=== PATIENT | male | born 1955 | race Caucasian/White ===

== ENCOUNTER → 2016-08-09 | Outpatient (CLI) | payer BC ==
--- NOTE | 2016-08-09 16:51 | US ---
EXAMINATION TYPE: US venous doppler duplex LE LT DATE OF EXAM: 08/09/2016 4:31 PM COMPARISON: NONE CLINICAL HISTORY: left total knee 07/11/2016, pain in calf since surgery SIDE PERFORMED: left VESSELS IMAGED: External Iliac Vein (EIV) Common Femoral Vein Deep Femoral Vein Greater Saphenous Vein * Femoral Vein Popliteal Vein Small Saphenous Vein * Proximal Calf Veins (* superficial vessels) Left Leg: wnl TECHNOLOGIST IMPRESSION: calf pain area slight edema, no acute DVT seen IMPRESSION: 1. Normal left lower extremity deep venous ultrasound
== END | disposition home or self-care (01) ==
LOC: RADUSWWP 15:46
PROVIDERS: ATTEND Orthopaedic Surgery
DX: Z47.1 Aftercare following joint replacement surgery (principal); M79.662 Pain in left lower leg; Z96.652 Presence of left artificial knee joint

== ENCOUNTER → 2018-03-20 | Outpatient (CLI) | payer BC ==
[2018-03-20 14:25] LABS: Basophils % (A) 0 %; Eosinophils # (A) 0.2 k/uL (0-0.7); Eosinophils % (A) 2 %; HCT 44.9 % (39.0-53.0); HGB 14.9 gm/dL (13.0-17.5); Lymphocytes # (A) 0.8 k/uL (1.0-4.8); Lymphocytes % (A) 13 %; MCH 29.8 pg (25.0-35.0); MCHC 33.1 g/dL (31.0-37.0); MCV 89.8 fL (80.0-100.0); Mean Platelet Volume 6.5; Monocytes # (A) 0.3 k/uL (0-1.0); Monocytes % (A) 5 %; Neutrophils % (A) 79 %; Platelet Count 243 k/uL (150-450); RDW 13.4 % (11.5-15.5); WBC 6.4 k/uL (3.8-10.6)
[2018-03-20 15:36] LABS: Erythrocyte Sedimentation Rate 4 mm/hr (0-15)
[2018-03-21 14:18] LABS: Albumin 3.91 g/dL (3.80-4.90); Gamma Globulin 0.74 g/dL (0.70-1.50); Protein, Total 6.2 g/dL (6.2-8.2)
== END | disposition home or self-care (01) ==
LOC: LABWHC1 13:41
PROVIDERS: ATTEND Family Medicine
DX: I10 Essential (primary) hypertension (principal); B02.9 Zoster without complications; Z79.899 Other long term (current) drug therapy
CPT/HCPCS: 36415; 84165; 85025; 85652; 86140; 86334

== ENCOUNTER → 2020-08-23 | Outpatient (CLI) | payer BC ==
--- NOTE | 2020-08-23 17:09 | XR ---
EXAMINATION TYPE: XR chest 2V DATE OF EXAM: 08/23/2020 COMPARISON: NONE HISTORY: Shortness of breath, R06.2 TECHNIQUE: Frontal and lateral views of the chest are obtained. FINDINGS: There is minimal patchy basilar density, no pleural effusion or pneumothorax seen. The ca rdiac silhouette size is within normal limits. The osseous structures are intact, there is thoracic spondylosis. IMPRESSION: There may be subsegmental basilar atelectatic changes or scarring, difficult to exclude pneumonia
--- NOTE | 2020-08-24 12:04 | ECHOF ---
Referral Reason:R06.02 Shortness of breath MEASUREMENTS -------- HEIGHT: 165.1 cm WEIGHT: 104.3 kg BP: IVSd: 0.9 cm (0.6 - 1.1) LVIDd: 4.6 cm (3.9 - 5.3) LVPWd: 0.9 cm (0.6 - 1.1) IVSs: 1.5 cm LVIDs: 1.2 cm LVPWs: 1.3 cm LAESV Index (A-L): 18.07 ml/m Ao Diam: 2.5 cm (2.0 - 3.7) AV Cusp: 1.9 cm (1.5 - 2.6) LA Diam: 3.7 cm (2.7 - 3.8) MV EXCURSION: 24.505 mm (> 18.000) MV EF SLOPE: 160 mm/s (70 - 150) EPSS: 1.9 cm MV E Claudio: 1.02 m/s MV DecT: 225 ms MV A Claudio: 0.98 m/s MV E/A Ratio: 1.04 RAP: 5.00 mmHg RVSP: 16.49 mmHg FINDINGS -------- Sinus rhythm. This was a technically adequate study. The left ventricular size is normal. Left ventricular wall thickness is normal. Overall left vent ricular systolic function is normal with, an EF between 55 - 60 %. The diastolic filling pattern is normal for the age of the patient 14.05. The right ventricle is normal in size. Normal LA size by volume 22+/-6 ml/m2. The right atrial size is normal. The aortic valve is trileaflet, and appears structurally normal. No aortic stenosis or regurgitation. The mitral valve is normal. Mild mitral regurgitation is present. The tricuspid valve appears structurally normal. Mild tricuspid regurgitation present. Right vent ricular systolic pressure is normal at < 35 mmHg. The pulmonic valve was not well visualized. There is no pulmonic regurgitation present. The aortic root size is normal. Normal inferior vena cava with normal inspiratory collapse consistent with estimated right atrial pre ssure of 5 mmHg. There is no pericardial effusion. CONCLUSIONS -------- 1. Left ventricular wall thickness is normal. 2. Overall left ventricular systolic function is normal with, an EF between 55 - 60 %. 3. Normal LA size by volume 22+/-6 ml/m2. 4. The aortic valve is trileaflet, and appears structurally normal. No aortic stenosis or regurgitati on. 5. Mild mitral regurgitation is present. 6. Mild tricuspid regurgitation present. 7. There is no pericardial effusion. INSPECTOR [employer]ATCH [employer]S: Breana Medeiros RDCS
== END | disposition home or self-care (01) ==
LOC: RADECHMAIN 13:03
PROVIDERS: ATTEND Family Medicine
DX: R06.02 Shortness of breath (principal); I08.1 Rheumatic disorders of both mitral and tricuspid valves
CPT/HCPCS: 71046; 93005; 93306

== ENCOUNTER 2021-10-03 23:43 | Emergency (ER) | payer BC ==
[2021-10-03 23:49] VITALS: RESP 16; TEMP 98.9
[2021-10-03] MEDS ORDERED: ONDANSETRON 4 MG/2 ML VIAL IVP STA (23:56)
[2021-10-03] MEDS ORDERED: SODIUM CHLORIDE 0.9% 1,000 ML IV STA (23:56)
--- NOTE | 2021-10-03 23:59 | ED ---
Nausea/Vomiting/Diarrhea HPI - General Chief complaint: Nausea/Vomiting/Diarrhea Stated complaint: Nausea, vomiting Time Seen by Provider: 10/03/21 23:50 Source: patient, EMS, RN notes reviewed Mode of arrival: EMS Limitations: no limitations - History of Present Illness Initial comments: This is a pleasant 66-year-old male presents complaining of nausea, vomiting, diarrhea, generalized weakness since Sunday. Patient states he started getting lightheaded at home and actually almost passed out today. Patient's has similar symptoms. He is denying any pain. Patient denies any fever. No respiratory symptoms. Up-to-date on immunizations to include COVID-19/booster. No headache, no fever or chills, no changes in vision or hearing, no sore throat or difficulty with speech, no neck pain, no chest pain or shortness of breath, no abdominal pain, no changes in urination or bowel movements, no numbness or tingling, no extremity pain, no skin rashes or lesions. MD complaint: nausea, vomiting, diarrhea - Related Data Home Medications Medication Instructions Recorded Confirmed Aspirin [Adult Low Dose Aspirin EC] 81 mg PO DAILY 07/06/16 07/11/16 Multivitamins, Thera [Multivitamin] 1 tab PO DAILY 07/06/16 07/11/16 Naproxen Sodium [Aleve] 220 - 440 mg PO Q6H PRN 07/06/16 07/11/16 Valsartan [Diovan] 80 mg PO HS 07/06/16 07/11/16 amLODIPine/ATORVASTATIN [Caduet 5 1 tab PO HS 07/06/16 07/11/16 mg-80 mg Tablet] valACYclovir [Valtrex] 500 mg PO DAILY 07/06/16 07/11/16 Previous Rx's Medication Instructions Recorded Aspirin 325 mg PO BID #60 tab 07/12/16 HYDROcodone/APAP 7.5-325MG [[place] 1 - 2 each PO Q6HR PRN #90 tab 07/12/16 7.5] Sennosides-Docusate Sodium 2 tab PO DAILY #60 tablet 07/12/16 [Senokot-S] Ondansetron [Zofran ODT] 4 mg PO Q8HR #20 tab 10/04/21 Allergies Allergy/AdvReac Type Severity Reaction Status Date / Time No Known Allergies Allergy Verified 10/03/21 23:45 Review of Systems ROS Statement: Those systems with pertinent positive or pertinent negative responses have been documented in the HPI. ROS Other: All systems not noted in ROS Statement are negative. Past Medical History Past Medical History: Hyperlipidemia, Hypertension, Osteoarthritis (OA), Skin Disorder Additional Past Medical History / Comment(s): SHINGLES ON THE BACK OF HIS NECK- Healed History of Any Multi-Drug Resistant Organisms: None Reported Past Surgical History: Appendectomy, Joint Replacement, Orthopedic Surgery Additional Past Surgical History / Comment(s): RIGHT KNEE X 2 & LEFT KNEE ARTHROSCOPY. BILATERAL CARPAL TUNNEL. RIGHT & LEFT CYSTS OFF ELBOWS. . UNICOMPARTMENTAL RIGHT KNEE REPLACED. SINUS Past Anesthesia/Blood Transfusion Reactions: No Reported Reaction Past Psychological History: No Psychological Hx Reported Smoking Status: Never smoker Past Alcohol Use History: None Reported Past Drug Use History: None Reported - Past Family History Mother Family Medical History: Congestive Heart Failure (CHF), Coronary Artery Disease (CAD), Deep Vein Thrombosis (DVT), Myocardial Infarction (NM), Pulmonary Embolus Additional Family Medical History / Comment(s): GREEN FILTER INSERTED. Father Family Medical History: Coronary Artery Disease (CAD), Myocardial Infarction (NM) General Exam Limitations: no limitations General appearance: alert, in no apparent distress Head exam: Present: atraumatic, normocephalic, normal inspection Eye exam: Present: normal appearance, PERRL, EOMI. Absent: scleral icterus, conjunctival injection, periorbital swelling ENT exam: Present: normal exam, mucous membranes moist Neck exam: Present: normal inspection. Absent: tenderness, meningismus, lymphadenopathy Respiratory exam: Present: normal lung sounds bilaterally. Absent: respiratory distress, wheezes, rales, rhonchi, stridor Cardiovascular Exam: Present: normal rhythm, tachycardia, normal heart sounds. Absent: systolic murmur, diastolic murmur, rubs, gallop, clicks GI/Abdominal exam: Present: soft, normal bowel sounds. Absent: distended, tenderness, guarding, rebound, rigid Extremities exam: Present: normal inspection, full ROM, normal capillary refill. Absent: tenderness, pedal edema, joint swelling, calf tenderness Back exam: Present: normal inspection Neurological exam: Present: alert, oriented X3, CN II-XII intact Psychiatric exam: Present: normal affect, normal mood Skin exam: Present: warm, dry, intact, normal color. 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90) m/uL Hgb 15.4 (13.0-17.5) gm/dL Hct 45.3 (39.0-53.0) % MCV 92.5 (80.0-100.0) fL MCH 31.4 (25.0-35.0) pg MCHC 33.9 (31.0-37.0) g/dL RDW 13.0 (11.5-15.5) % Plt Count 225 (150-450) k/uL MPV 6.9 Neutrophils % 90 % Lymphocytes % 3 % Monocytes % 5 % Eosinophils % 0 % Basophils % 1 % Neutrophils # 8.5 H (1.3-7.7) k/uL Lymphocytes # 0.3 L (1.0-4.8) k/uL Monocytes # 0.4 (0-1.0) k/uL Eosinophils # 0.0 (0-0.7) k/uL Basophils # 0.1 (0-0.2) k/uL Sodium 135 L (137-145) mmol/L Potassium 4.0 (3.5-5.1) mmol/L Chloride 104 (98-107) mmol/L Carbon Dioxide 23 (22-30) mmol/L Anion Gap 8 mmol/L BUN 32 H (9-20) mg/dL Creatinine 1.11 (0.66-1.25) mg/dL Est GFR (CKD-EPI)AfAm 80 (>60 ml/min/1.73 sqM) Est GFR (CKD-EPI)NonAf 69 (>60 ml/min/1.73 sqM) Glucose 144 H (74-99) mg/dL Plasma Lactic Acid Kel 1.3 (0.7-2.0) mmol/L Calcium 8.3 L (8.4-10.2) mg/dL Magnesium 2.0 (1.6-2.3) mg/dL Total Bilirubin 0.7 (0.2-1.3) mg/dL AST 29 (17-59) U/L ALT 26 (4-49) U/L Alkaline Phosphatase 66 (38-126) U/L Troponin I (0.000-0.034) ng/mL Total Protein 6.1 L (6.3-8.2) g/dL Albumin 3.7 (3.5-5.0) g/dL Lipase 20 L (23-300) U/L 10/03/21 Range/Units 23:59 WBC (3.8-10.6) k/uL RBC (4.30-5.90) m/uL Hgb (13.0-17.5) gm/dL Hct (39.0-53.0) % MCV (80.0-100.0) fL MCH (25.0-35.0) pg MCHC (31.0-37.0) g/dL RDW (11.5-15.5) % Plt Count (150-450) k/uL MPV Neutrophils % % Lymphocytes % % Monocytes % % Eosinophils % % Basophils % % Neutrophils # (1.3-7.7) k/uL Lymphocytes # (1.0-4.8) k/uL Monocytes # (0-1.0) k/uL Eosinophils # (0-0.7) k/uL Basophils # (0-0.2) k/uL Sodium (137-145) mmol/L Potassium (3.5-5.1) mmol/L Chloride (98-107) mmol/L Carbon Dioxide (22-30) mmol/L Anion Gap mmol/L BUN (9-20) mg/dL Creatinine (0.66-1.25) mg/dL Est GFR (CKD-EPI)AfAm (>60 ml/min/1.73 sqM) Est GFR (CKD-EPI)NonAf (>60 ml/min/1.73 sqM) Glucose (74-99) mg/dL Plasma Lactic Acid Kel (0.7-2.0) mmol/L Calcium (8.4-10.2) mg/dL Magnesium (1.6-2.3) mg/dL Total Bilirubin (0.2-1.3) mg/dL AST (17-59) U/L ALT (4-49) U/L Alkaline Phosphatase (38-126) U/L Troponin I <0.012 (0.000-0.034) ng/mL Total Protein (6.3-8.2) g/dL Albumin (3.5-5.0) g/dL Lipase (23-300) U/L Disposition Clinical Impression: Dehydration, Vomiting and diarrhea Disposition: HOME SELF-CARE Condition: Stable Instructions (If sedation given, give patient instructions): Acute Diarrhea (ED), Acute Nausea and Vomiting (ED) Additional Instructions: Follow-up with your regular physician as directed. Return to the ER immediately if any symptoms worsen, new symptoms arise, or any other problems develop. Is patient prescribed a controlled substance at d/c from ED?: No Referrals: James Shaver MD [Primary Care Provider] - 1-2 days Time of Disposition: 01:46
[2021-10-04 00:35] LABS: Basophils # (A) 0.1 k/uL (0-0.2); Basophils % (A) 1 %; Eosinophils % (A) 0 %; HCT 45.3 % (39.0-53.0); HGB 15.4 gm/dL (13.0-17.5); Lymphocytes # (A) 0.3 k/uL (1.0-4.8); Lymphocytes % (A) 3 %; MCH 31.4 pg (25.0-35.0); MCHC 33.9 g/dL (31.0-37.0); MCV 92.5 fL (80.0-100.0); Mean Platelet Volume 6.9; Monocytes # (A) 0.4 k/uL (0-1.0); Monocytes % (A) 5 %; Neutrophils # (A) 8.5 k/uL (1.3-7.7); Neutrophils % (A) 90 %; Platelet Count 225 k/uL (150-450); WBC 9.4 k/uL (3.8-10.6)
[2021-10-04 00:55] LABS: Albumin 3.7 g/dL (3.5-5.0); Calcium 8.3 mg/dL (8.4-10.2); Total Bilirubin 0.7 mg/dL (0.2-1.3); Total Protein 6.1 g/dL (6.3-8.2)
--- NOTE | 2021-10-04 00:55 | XR ---
EXAMINATION TYPE: XR abdomen acute w cxr DATE OF EXAM: 10/04/2021 COMPARISON: Chest x-ray 08/23/2020 HISTORY: Nausea and vomiting TECHNIQUE: 4 views FINDINGS: There is no sign of intestinal obstruction or pneumoperitoneum. Fecal pattern is normal. Th ere is no sign of a mass. There is some mild linear density at the lung bases. There is no heart failure. There are no hilar ma sses. Heart size is normal. IMPRESSION: Nonacute abdomen. There is some pleural reaction and atelectasis at the lung bases not si gnificantly different than old exam. No heart failure.
[2021-10-04 01:47] LABS: Appearance,Urine Clear (Clear); Bilirubin,Urine Negative (Negative); Blood,Urine Negative (Negative); Color,Urine Yellow; Glucose,Urine (UA) Negative (Negative); Ketones,Urine Negative (Negative); Leukocyte Esterase,Urine Negative (Negative); Nitrite,Urine Negative (Negative); Protein,Urine Trace (Negative); Urobilinogen,Urine <2.0 mg/dL (<2.0)
[2021-10-04 02:09] VITALS: BP 117/75; PULSE 97
== END 2021-10-04 02:08 | disposition home or self-care (01) ==
LOC: EC 23:43
DX: E86.0 Dehydration (principal); R11.2 Nausea with vomiting, unspecified; R19.7 Diarrhea, unspecified; I10 Essential (primary) hypertension; E78.5 Hyperlipidemia, unspecified; M19.90 Unspecified osteoarthritis, unspecified site; Z79.82 Long term (current) use of aspirin; Z79.899 Other long term (current) drug therapy
CPT/HCPCS: 36415; 74022; 80053; 81003; 83605; 83690; 83735; 84484; 85025; 93005; 96360; 99285

== ENCOUNTER → 2022-06-06 | Outpatient (CLI) | payer BC ==
--- NOTE | 2022-06-06 14:37 | XR ---
EXAMINATION TYPE: XR chest special 4+ views DATE OF EXAM: 06/06/2022 COMPARISON: 10/05/2019 TECHNIQUE: PA and lateral and bilateral oblique views submitted. HISTORY: Cough FINDINGS: The lungs are clear and there is no pneumothorax, pleural effusion, or focal pneumonia. Hypertrophi c and degenerative changes spine. There are subsegmental changes at the lung bases most likely atelec tasis. Suggestion of pleural-based calcification associated with asbestos related disease. Arthropathy of the shoulders. Hyperinflation suggests COPD. Pleural-based thickening and chronic rib organs are seen correlate for history of prior trauma. IMPRESSION: 1. No acute process. Correlate for COPD. 2. Correlate for asbestos related disease. 3 pleural thickening along the left chest likely secondary to prior trauma and remote multiple rib fr actures with chronic pleural reaction.
== END | disposition home or self-care (01) ==
LOC: RADXRMAIN 13:49
PROVIDERS: ATTEND Otolaryngology
DX: J44.9 Chronic obstructive pulmonary disease, unspecified (principal)
CPT/HCPCS: 71048

== ENCOUNTER → 2022-07-25 | Outpatient (CLI) | payer BC ==
[2022-07-25 08:47] LABS: African American GFR (CKD) >90 (>60 ml/min/1.73 sqM); Blood Urea Nitrogen 22 mg/dL (9-20); Non-African American GFR(CKD) 85 (>60 ml/min/1.73 sqM)
--- NOTE | 2022-07-25 09:35 | CT ---
EXAMINATION TYPE: CT chest w con CT DLP: 744.5 mGycm, Automated exposure control for dose reduction was used. DATE OF EXAM: 07/25/2022 9:17 AM COMPARISON: CT chest 07/06/2015. Chest radiograph from 06/06/2022. CLINICAL INDICATION:Male, 66 years old with history of R05.3 chronic cough; PHH, chronic cough TECHNIQUE: Multiple axial images were obtained through the chest following the administration of 100 cc of Isovue 300. FINDINGS: LUNGS/ PLEURA: No pneumothorax, pleural effusion, or focal consolidation. Bibasilar scarring. Pleural plaque along the left hemidiaphragm . Bibasilar pleural thickening similar. No concerning pulmonary nodule or mass. AIRWAY: Patent. Bibasilar bronchiectasis. HEART: Size within normal limits. No pericardial effusion. There are coronary artery calcifications. MEDIASTINUM: No gross evidence of adenopathy. Calcified mediastinal and hilar lymph nodes identified. VASCULATURE: No aortic aneurysm. MUSCULOSKELETAL: No acute osseous abnormalities. Remote left-sided rib fractures. SOFT TISSUES/LYMPH NODES: Unremarkable. LOWER NECK: No significant findings. UPPER ABDOMEN: Couple of calcified granulomas demonstrated within the right hepatic dome. Nonobstruct mateo left renal 3 mm calculus. IMPRESSION: 1. No acute thoracic process. 2. Pleural plaque along the left hemidiaphragm. Correlate for asbestosis exposure. 3. Stable bibasilar pleural thickening from examination 2014. 4. Sequelae of prior granulomatous disease. 5. Nonobstructive left renal calculus.
== END | disposition home or self-care (01) ==
LOC: RADCTMAIN 08:09
PROVIDERS: ATTEND Internal Medicine Critical Care Medicine
DX: N20.0 Calculus of kidney (principal); J98.4 Other disorders of lung; J94.8 Other specified pleural conditions; D71 Functional disorders of polymorphonuclear neutrophils
CPT/HCPCS: 82565; 84520; 71260; Q9967